=== PATIENT | female | born 1955 | race Caucasian/White ===

== ENCOUNTER → 2017-09-25 | Outpatient (CLI) | payer OTHER ==
[~2017-09-25] MED LIST: PREDNISONE 20 M20 M1 PO
== END ==
LOC: M.RAD 09-23 10:20
DX: Z12.31 Encounter for screening mammogram for malignant neoplasm of breast (principal)

== ENCOUNTER → 2018-03-17 | Outpatient (CLI) | payer OTHER | LOC: M.RAD 13:27 | DX: N91.2 Amenorrhea, unspecified (principal); Z78.0 Asymptomatic menopausal state ==

== ENCOUNTER → 2018-09-29 | Outpatient (CLI) | payer OTHER | LOC: M.RAD 09:49 | DX: Z12.31 Encounter for screening mammogram for malignant neoplasm of breast (principal) ==

== ENCOUNTER → 2020-12-11 | Outpatient (CLI) | payer MEDICARE | LOC: M.RAD 09:49 | PROVIDERS: ATTEND Family Medicine | DX: Z12.31 Encounter for screening mammogram for malignant neoplasm of breast (principal); M85.88 Other specified disorders of bone density and structure, other site ==

== ENCOUNTER → 2020-12-11 | Outpatient (CLI) | payer OTHER | LOC: M.CT 09:38 | PROVIDERS: ATTEND Family Medicine | DX: Z13.6 Encounter for screening for cardiovascular disorders (principal) ==